=== PATIENT | male | born 1960 | race Caucasian/White ===

== ENCOUNTER → 2020-07-06 | Outpatient (CLI) | payer BC ==
[~2020-07-06] MED LIST: GLUCOPHAGE500 MG PO; LIPITOR TAB 1010 MG PO; OMNICEF 300 MG300 MG PO; ZOFRAN ODT4 MG PO
[2020-07-06 09:58] LABS: BUN/CREATININE RATIO 13 (0-10)
[2020-07-07 06:45] LABS: CREATININE, URINE 252.8 mg/dL (Not Estab.)
[2020-07-07 09:10] LABS: PROLACTIN 10.1 ng/mL (4.0-15.2)
[2020-07-10 00:11] LABS: TESTOSTERONE, SERUM 444 ng/dL (264-916)
== END ==
LOC: LAB 08:58
PROVIDERS: Family Medicine
DX: Z12.5 Encounter for screening for malignant neoplasm of prostate (principal); F52.21 Male erectile disorder; E78.5 Hyperlipidemia, unspecified; E11.9 Type 2 diabetes mellitus without complications
CPT/HCPCS: 36415; 80053; 80061; 82043; 82570; 84146; 84153; 84402; 84403; 84443

== ENCOUNTER → 2020-07-19 | Day surgery (SDC) | payer BC | END | disposition home or self-care (01) | LOC: OR 07:14 | DX: Z12.11 Encounter for screening for malignant neoplasm of colon (principal); E11.65 Type 2 diabetes mellitus with hyperglycemia; E78.5 Hyperlipidemia, unspecified; N40.0 Benign prostatic hyperplasia without lower urinary tract symptoms; F17.210 Nicotine dependence, cigarettes, uncomplicated; G47.30 Sleep apnea, unspecified; Z86.010 Personal history of colon polyps; Z79.84 Long term (current) use of oral hypoglycemic drugs; Z79.899 Other long term (current) drug therapy | CPT/HCPCS: 82962; J2704; J7030 ==

== ENCOUNTER → 2021-01-18 | Outpatient (CLI) | payer BC ==
[2021-01-18 11:42] LABS: BUN/CREATININE RATIO 17 (0-10)
== END ==
LOC: LAB 09:43
PROVIDERS: Family Medicine
DX: E11.9 Type 2 diabetes mellitus without complications (principal); E78.5 Hyperlipidemia, unspecified
CPT/HCPCS: 80053; 80061; 83036

== ENCOUNTER → 2021-06-13 | Outpatient (CLI) | payer BC ==
[2021-06-13 22:08] LABS: BUN/CREATININE RATIO 16 (0-10)
[2021-06-15 06:41] LABS: CREATININE, URINE 26.5 mg/dL (Not Estab.); MICROALB/CREAT RATIO <11 (0-29)
== END ==
LOC: LAB 21:24 → EROP 21:24
PROVIDERS: Family Medicine
DX: E11.65 Type 2 diabetes mellitus with hyperglycemia (principal)
CPT/HCPCS: 80048; 82043; 82570; 83036

== ENCOUNTER → 2021-08-11 | Outpatient (CLI) | payer BC | LOC: KOH-I 08-05 11:00 | DX: F17.210 Nicotine dependence, cigarettes, uncomplicated (principal); M54.50 Low back pain, unspecified; M47.816 Spondylosis without myelopathy or radiculopathy, lumbar region | CPT/HCPCS: 71271; 72110 ==

== ENCOUNTER → 2021-11-09 | Outpatient (CLI) | payer BC ==
[2021-11-09 08:49] LABS: HEMOGLOBIN 14.1 gm/dl (14.0-17.5); RED BLOOD COUNT 4.67 M/UL (4.20-5.50); WHITE BLOOD COUNT 7.2 K/UL (4.5-11.0)
[2021-11-09 09:13] LABS: BUN/CREATININE RATIO 28 (0-10)
== END ==
LOC: LAB 08:21
PROVIDERS: Family Medicine
DX: Z12.5 Encounter for screening for malignant neoplasm of prostate (principal); E11.9 Type 2 diabetes mellitus without complications; E78.5 Hyperlipidemia, unspecified
CPT/HCPCS: 36415; 80053; 80061; 83036; 83735; 84153; 84443; 85027